=== PATIENT | male | born 1985 | race Caucasian/White ===

== ENCOUNTER 2017-04-28 11:06 | Emergency (ER) | payer BC ==
[~2017-04-28] VITALS: Ht 182.9 cm; Wt 89.4 kg
[2017-04-28 11:32] LABS: ADD MIUA? NO; BILIRUBIN NEGATIVE; BLOOD NEGATIVE; COLOR COLORLESS ((YELLOW)); GLUCOSE (STRIP) NEGATIVE; KETONES NEGATIVE; LEUKOCYTES NEGATIVE; NITRITE NEGATIVE; PROTEIN (STRIP) NEGATIVE; SPECIFIC GRAVITY 1.003 (1.000-1.030); UROBILINOGEN 0.2 MG/DL (0.2-1.0)
[2017-04-28 11:41] LABS: AMPHETAMINE NEGATIVE (500 ng/mL); BARBITURATES NEGATIVE (200 ng/mL); BENZODIAZEPINES NEGATIVE (150 ng/mL); COCAINE NEGATIVE (150 ng/mL); INTERNAL CONTROLS VALID? YES; METHADONE NEGATIVE (200 ng/mL); METHAMPHETAMINE NEGATIVE (500 ng/mL); OPIATES (MORPHINE) NEGATIVE (100 ng/mL); OXYCODONE NEGATIVE (100 ng/mL); PHENCYCLIDINE NEGATIVE (25 ng/mL); PROPOXYPHENE NEGATIVE (300 ng/mL); THC CANNABINOIDS NEGATIVE (50 ng/mL); TRICYCLIC ANTIDEPRESSANTS NEGATIVE (300 ng/mL)
[2017-04-28 12:46] LABS: HEMATOCRIT 36.3 % (38.0-50.0); MCH 34.8 PG (29.0-34.0); MCHC 36.4 G/DL (30.0-36.0); MCV 95.8 FL (86-99); MEAN PLAT.VOLUME 9.4 uM^3 (9.0-12.4); PLATELET COUNT 242 K/uL (156-360); RBC DIS.WIDTH-CV 13.4 % (11.8-14.6); RBC DIS.WIDTH-SD 47.4 % (39-53); RED BLOOD COUNT 3.79 M/uL (4.00-5.50); WHITE BLOOD COUNT 4.7 K/uL (4.1-10.2)
[2017-04-28 12:58] LABS: CHLORIDE 106 mEq/L (99-109); SODIUM 139 mEq/L (136-147)
[2017-04-28 13:00] LABS: GLUCOSE 85 mg/dL (70-99)
[2017-04-28 13:01] LABS: ANION GAP 6 MEQ/L (2-14)
[2017-04-28 13:02] LABS: TOTAL BILIRUBIN 0.9 mg/dL (0.0-1.0)
[2017-04-28 13:03] LABS: ALKALINE PHOSPHATASE 33 IU/L (3-129)
[2017-04-28 13:05] LABS: UREA NITROGEN (BUN) 10 mg/dL (9-23)
[2017-04-28 13:15] LABS: GFR ESTIMATE (CALCULATED) > 59 mL/min/
[2017-04-28 15:27] VITALS: BP 113/77
== END 2017-04-28 15:28 | disposition home or self-care (01) ==
LOC: EME 11:06
DX: R53.83 Other fatigue (principal); Z88.0 Allergy status to penicillin
CPT/HCPCS: 80053; 81003; 85027; 99281; 99285